=== PATIENT | male | born 1930 | race Caucasian/White ===

== ENCOUNTER 2017-11-18 08:35 | Observation (INO) | payer MEDICARE ==
[2017-11-16 10:05] VITALS: BP 120/61
[2017-11-16 10:11] LABS: BASOPHILS % (AUTO) 0.5 % (0.0-5.0); EOSINOPHILS % (AUTO) 2.8 % (0.0-8.0); HEMATOCRIT 32.6 % (42-54); LYMPHOCYTES % (AUTO) 22.7 % (21.0-51.0); MEAN CORPUSCULAR HEMOGLOBIN 31.4 pg (27.0-33.0); MEAN CORPUSCULAR HGB CONC 33.7 g/dL (32.0-36.0); MEAN CORPUSCULAR VOLUME 93.3 fL (79-99); MONOCYTES % (AUTO) 7.1 % (3.0-13.0); NEUTROPHILS % (AUTO) 66.9 % (40.0-77.0); PLATELET COUNT (AUTO) 244 K/uL (130-400); RED CELL DISTRIBUTION WIDTH 17.2 % (11.0-15.5); WHITE BLOOD COUNT (AUTO) 5.3 K/uL (4.8-10.8)
[2017-11-16 10:19] LABS: POTASSIUM 4.3 mmol/L (3.5-5.1)
[2017-11-16 10:31] LABS: INR 1.3 (0.85-1.15); PARTIAL THROMBOPLASTIN TIME 34.3 SEC (26.3-35.5); PROTHROMBIN TIME 13.6 SEC (9.6-11.6)
[2017-11-16 11:16] LABS: APPEARANCE,URINE Clear (CLEAR); BILIRUBIN,URINE Negative (NEGATIVE); COLOR,URINE Yellow (YELLOW); GLUCOSE, URINE (UA) Negative (NEGATIVE); KETONES,URINE Negative (NEGATIVE); LEUKOCYTE ESTERASE ,URINE Small (NEGATIVE); NITRATE,URINE Negative (NEGATIVE); OCCULT BLOOD,URINE Negative (NEGATIVE); PROTEIN,URINE POS 1+ (NEGATIVE)
[2017-11-16 11:34] LABS: BACTERIA,URINE Rare /HPF (None Seen); RBC,URINE 0-1 /HPF (0-1); SQUAMOUS EPITHELIAL CELL,UR Rare /HPF (0-2)
[~2017-11-18] VITALS: Ht 182.9 cm; Wt 76.7 kg
[2017-11-18] VITALS (16 sets, daily range): BP systolic 97–144; BP diastolic 42–74
[~2017-11-18 08:35] MED LIST: ALBU90AE IH; ALLO300T2 PO; CYAN100099 PO; DOCU100T PO; FURO40TA5 PO; LOSA100T20 PO; POTA-79 PO; SERT100T12 PO; SLOMG PO; SODIUM CHLORIDE 0.9% 500ML 500 ML IV SCH; SYMB8060 IH; TIOT18CA3 IH; WARF-57 PO
[2017-11-18] MEDS ORDERED: IOHEXOL 350 MG/ML 100ML INFUS..BTL IV ONE (14:33)
[2017-11-18] MEDS ORDERED: NITROGLYCERIN 5 MG/ML 10 ML VIAL IV ONE (14:33)
[2017-11-18] MEDS ORDERED: IOHEXOL-350 75 ML VIAL IV ONE (14:33)
[2017-11-18] MEDS ORDERED: IOHEXOL-350 50ML VIAL IV ONE (14:33)
[2017-11-18] MEDS ORDERED: LIDOCAINE HCL-MPF 2% 5ML VIAL ONE (14:33)
[2017-11-18] MEDS ORDERED: HEPARIN SODIUM 1000UNIT/ML 10ML VIAL ONE (16:21)
[2017-11-18] MEDS ORDERED: DOBUTAMINE 250MG/D5 250ML 250 ML IV ONE (16:37)
[2017-11-18] MEDS ORDERED: HYDRALAZINE HCL 20 MG/ML VIAL ONE ×2 (17:06→17:13)
[2017-11-18] MEDS ORDERED: LABETALOL HCL 5 MG/ML 20ML VIAL IV ONE (17:10)
[2017-11-18] MEDS ORDERED: TRAMADOL HCL 50 MG TABLET PO PRN (19:15)
[2017-11-18] MEDS ORDERED: ALBUTEROL SULFATE 0.083% 2.5 MG/3 ML INH IH PRN (19:15)
[2017-11-18] MEDS: IPRATROPIUM 0.5 MG/2.5 ML INH IH SCH ×2 (19:53→23:37)
[2017-11-18] MEDS: BUDESONIDE 0.5 MG/2 ML INH IH SCH (20:00)
[2017-11-18] MEDS ORDERED: MAGNESIUM CHLORIDE 64 MG PO SCH (21:00)
[2017-11-18] MEDS: DOCUSATE SODIUM 100 MG CAP PO SCH (21:27)
[2017-11-18] MEDS: POTASSIUM CHLORIDE 20 MEQ ERTAB PO SCH (21:27)
[2017-11-18] MEDS: ALBUTEROL SULFATE 0.083% 2.5 MG/3 ML INH IH SCH (23:40)
[2017-11-19 03:32] LABS: HEMATOCRIT 32.6 % (42-54); MEAN CORPUSCULAR HEMOGLOBIN 30.4 pg (27.0-33.0); MEAN CORPUSCULAR HGB CONC 32.8 g/dL (32.0-36.0); MEAN CORPUSCULAR VOLUME 92.7 fL (79-99); PLATELET COUNT (AUTO) 213 K/uL (130-400); RED BLOOD CELL COUNT(AUTO) 3.51 MIL/uL (4.50-6.20); RED CELL DISTRIBUTION WIDTH 17.1 % (11.0-15.5); WHITE BLOOD COUNT (AUTO) 6.5 K/uL (4.8-10.8)
[2017-11-19 03:44] LABS: CREATININE 1.1 mg/dL (0.5-1.5); POTASSIUM 3.7 mmol/L (3.5-5.1)
[2017-11-19 04:07] VITALS: BP 101/51
[2017-11-19] MEDS: IPRATROPIUM 0.5 MG/2.5 ML INH IH SCH (06:38)
[2017-11-19] MEDS: BUDESONIDE 0.5 MG/2 ML INH IH SCH (06:43)
[2017-11-19] MEDS: ALBUTEROL SULFATE 0.083% 2.5 MG/3 ML INH IH SCH (06:43)
[2017-11-19 07:29] VITALS: BP 148/56
[2017-11-19] MEDS: DOCUSATE SODIUM 100 MG CAP PO SCH (08:27)
[2017-11-19] MEDS: POTASSIUM CHLORIDE 20 MEQ ERTAB PO SCH (08:28)
[2017-11-19] MEDS ORDERED: DOCUSATE NA 100MG/10ML UDCUP ONE (08:32)
[2017-11-19] MEDS ORDERED: POTASSIUM CHLORIDE 10% ELIXIR 20 MEQ/15 ML UDCUP ONE (08:33)
[2017-11-19] MEDS ORDERED: FUROSEMIDE 20 MG TABLET PO SCH (09:00)
[2017-11-19] MEDS ORDERED: CYANOCOBALAMIN (VITAMIN B-12) 1,000 MCG TABLET PO SCH (09:00)
[2017-11-19] MEDS ORDERED: LOSARTAN 100 MG TABLET PO SCH (09:00)
[2017-11-19] MEDS ORDERED: SERTRALINE HCL 50 MG TABLET PO SCH (09:00)
[2017-11-19] MEDS ORDERED: ALLOPURINOL 300 MG TABLET PO SCH (09:00)
== END 2017-11-19 09:53 | disposition home or self-care (01) ==
LOC: DAH 08:35 → DAHIP 08:36 → DAH 08:36 → 2CH 19:35
PROVIDERS: ADMIT Internal Medicine Cardiovascular Disease; ATTEND Internal Medicine Cardiovascular Disease
DX: I11.0 Hypertensive heart disease with heart failure (principal); I50.22 Chronic systolic (congestive) heart failure; I48.2 Chronic atrial fibrillation; J44.9 Chronic obstructive pulmonary disease, unspecified; I08.0 Rheumatic disorders of both mitral and aortic valves; I25.10 Atherosclerotic heart disease of native coronary artery without angina pectoris; I42.0 Dilated cardiomyopathy; I45.9 Conduction disorder, unspecified; Z85.46 Personal history of malignant neoplasm of prostate; Z85.828 Personal history of other malignant neoplasm of skin; Z87.891 Personal history of nicotine dependence; Z92.3 Personal history of irradiation; Z79.01 Long term (current) use of anticoagulants
CPT/HCPCS: 36415 ×2; 71045; 80048 ×2; 81001; 85025; 85027; 85610; 85730; 93005; 93460; 93463; 94640 ×5; 94664; A4600; A4606; C1760; C1769; C1893; C1894; G0378 ×25; J0360 ×2; J1250; J1644 ×2; J3490 ×3; Q9967 ×3